=== PATIENT | female | born 1995 | race Caucasian/White ===

== ENCOUNTER 2016-08-13 14:36 | Emergency (ER) | payer BC ==
[~2016-08-13] VITALS: Ht 165.1 cm; Wt 80.4 kg
[2016-08-13 14:43] VITALS: Ht 165.1 cm; Wt 80.4 kg
[2016-08-13] MEDS ORDERED: SODIUM CHLORIDE 0.9% 1000ML 2,000 ML IV STA (15:01)
[2016-08-13] MEDS ORDERED: KETOROLAC TROMETHAMINE 30 MG/ML VIAL IV STA (15:01)
[2016-08-13] MEDS ORDERED: ONDANSETRON INJ 2 MG/ML 2 ML VIAL IV STA (15:01)
[2016-08-13] MEDS ORDERED: SODIUM CHLORIDE 0.9% 1000ML 1,000 ML IV STA (15:06)
[2016-08-13] MEDS ORDERED: ACETAMINOPHEN 500 MG TAB PO STA (15:06)
[2016-08-13] MEDS ORDERED: BCPILLS PO (15:09)
[2016-08-13 15:47] LABS: URINE APPEARANCE CLOUDY (CLEAR); URINE BILIRUBIN NEG (NEG); URINE COLOR DK YELLOW; URINE EPITHELIAL CELL AUTO >30 /lpf (0-5); URINE NITRITE NEG (NEG); URINE SPECIFIC GRAVITY 1.031 (1.000-1.030); UROBILINOGEN NEG (NEG); ZZUR CULT IF INDIC CLEAN CATCH YES
[2016-08-13 15:48] LABS: MANUAL MICROSCOPIC REQUIRED? NO; REVIEW REQ? NO
[2016-08-13 16:05] LABS: COMPLETE YES; HEMATOCRIT 42.7 % (37-47); IG% 0.3 %; LYMPH % 11.2 %; LYMPH ABS # 0.83 K/uL (1.2-3.4); MEAN CELL VOLUME 83.9 fL (80-100); MEAN CORPUSCULAR HEMOGLOBIN 29.5 pg (25-34); MEAN CORPUSCULAR HGB CONC 35.1 g/dl (32-36); MEAN PLATELET VOLUME 11.1 fL (7.4-10.4); MONO % 5.7 %; NEUT % 82.8 %; PLATELET COUNT 191 K/uL (130-400); RED BLOOD COUNT 5.09 M/uL (4.2-5.4); WHITE BLOOD COUNT 7.43 K/uL (4.8-10.8)
--- NOTE | 2016-08-13 16:17 | EMERGENCY ROOM VISIT NOTE ---
History Report prepared by Tosha: Nya Mcpherson Under the Supervision of: Carmita HogueO. First contact with patient: 14:52 Chief Complaint: VOMITING Stated Complaint: THROWING UP,DIARRHEA,DIZZY,FEVER History of Present Illness The patient is a 20 year old female who presents to the Emergency Room with complaints of persistent mid abdominal pain starting yesterday. The patient also complains of dizziness with changes in position. She notes fevers. She started having nausea and vomiting this morning. About an hour after she started vomiting, she started having diarrhea. She has had 4 episodes of diarrhea today. She currently rates a pain intensity of 7-8/10. Pt denies headache, change in vision, chest pain, shortness of breath, pain with urination , melena, and vaginal bleeding/discharge. She denies any medical problems. She denies any history of abdominal surgeries. She denies any recent antibiotics. She denies any recent travels or drinking from questionable sources of water. 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 She is on control medications. Source of History: patient Onset: yesterday Position: abdomen (mid) Symptom Intensity: 7-8/10 Timing: other (persistent) Associated Symptoms: + diarrhea, + nausea, + vomiting, No SOB, No chest pain , No headache Review of Systems See HPI for pertinent positives & negatives. A total of 10 systems reviewed and were otherwise negative. Past Medical & Surgical Medical Problems: (1) No Known Active Medical Problems Family History Patient reports no known family medical history. Social History Smoking Status: Never Smoker Marital Status: single Occupation Status: employed Current/Historical Medications Scheduled Control Pills ( Control Pills), 1 TAB PO DAILY Scheduled PRN Ondansetron Hcl (Zofran), 4 MG PO TID PRN for Nausea Allergies Coded Allergies: No Known Allergies (Unverified , 08/13/16) Physical Exam Vital Signs Date Time Temp Pulse Resp B/P Pulse Ox O2 Delivery O2 Flow Rate FiO2 08/13/16 18:54 88 14 135/80 98 08/13/16 18:29 96 17 135/73 100 Room Air 08/13/16 17:29 103 14 125/75 99 Room Air 08/13/16 16:44 37.3 110 14 125/78 98 Room Air 08/13/16 15:09 107 08/13/16 14:54 110 24 133/78 100 Room Air 129 126/84 133 128/79 08/13/16 14:43 37.8 115 18 134/84 100 Room Air Physical Exam GENERAL: Sitting up in bed, disheveled, no acute distress, non-toxic EYE EXAM: normal conjunctiva, PERRL and EOM's grossly intact OROPHARYNX: no exudate, no erythema, lips, buccal mucosa, and tongue normal and mucous membranes are moist NECK: supple, no nuchal rigidity, no adenopathy, non-tender LUNGS: Clear to auscultation. Normal chest wall mechanics HEART: no murmurs, S1 normal and S2 normal ABDOMEN: abdomen soft, minimal tenderness in the epigastric region, normo- active bowel sounds, no masses, no rebound or guarding. BACK: Back is symmetrical on inspection and there is no deformity, no midline tenderness, no CVA tenderness. SKIN: no rashes and no bruising UPPER EXTREMITIES: upper extremities are grossly normal. LOWER EXTREMITIES: No pitting edema. NEURO EXAM: Normal sensorium, cranial nerves II-XII intact, normal speech, no weakness of arms, no weakness of legs. No drift. Finger to nose intact. Gross sensation intact. Medical Decision & Procedures ER Provider Diagnostic Interpretation: US results as stated below per my review and the radiologist's interpretation: ULTRASOUND RIGHT UPPER QUADRANT ABDOMEN CLINICAL HISTORY: Right upper quadrant abdominal pain. COMPARISON STUDY: No priors. TECHNIQUE: Real-time, grayscale, and color flow sonography of the right upper quadrant of the abdomen was performed. Images are reviewed in the transverse and longitudinal planes. FINDINGS: Liver: The liver is normal in size and echotexture. There is no intrahepatic biliary ductal dilatation. The main portal vein is patent. Gallbladder: The gallbladder is normal in appearance. No gallstones are identified. There is no gallbladder wall thickening or pericholecystic fluid. A sonographic Patton's sign is reportedly absent. The common bile duct measures up to 0.4 cm in diameter. Pancreas: Visualized portions of the pancreatic head are normal in appearance. The majority of the pancreas was not well visualized. The splenic vein is patent. Right kidney: Survey images of the right kidney demonstrate normal size and echotexture. There is no hydronephrosis. Ascites: None. IMPRESSION: Unremarkable sonographic assessment of the right upper quadrant. No gallstones are identified. Electronically signed by: Julio Cesar Pinto M.D. 08/13/2016 4:43 PM Dictated Date/Time: 08/13/2016 4:42 PM Laboratory Results 08/13/16 15:54 Red Blood Count 5.09, Mean Corpuscular Volume 83.9, Mean Corpuscular Hemoglobin 29.5, Mean Corpuscular Hemoglobin Concent 35.1, Mean Platelet Volume 11.1, Neutrophils (%) (Auto) 82.8, Lymphocytes (%) (Auto) 11.2, Monocytes (%) (Auto) 5.7, Eosinophils (%) (Auto) 0.0, Basophils (%) (Auto) 0.0, Neutrophils # (Auto) 6.16, Lymphocytes # (Auto) 0.83, Monocytes # (Auto) 0.42, Eosinophils # (Auto) 0.00, Basophils # (Auto) 0.00 08/13/16 15:54 Test 08/13/16 15:25 08/13/16 15:54 Urine Color DK YELLOW Urine Appearance CLOUDY (CLEAR) Urine pH 5.0 (4.5-7.5) Urine Specific Thebes 1.031 (1.000-1.030) Urine Protein NEG (NEG) Urine Glucose (UA) NEG (NEG) Urine Ketones 2+ (NEG) Urine Occult Blood TRACE (NEG) Urine Nitrite NEG (NEG) Urine Bilirubin NEG (NEG) Urine Urobilinogen NEG (NEG) Urine Leukocyte Esterase SMALL (NEG) Urine WBC (Auto) 1-5 /hpf (0-5) Urine RBC (Auto) 5-10 /hpf (0-4) Urine Hyaline Casts (Auto) 5-10 /lpf (0-5) Urine Epithelial Cells (Auto) >30 /lpf (0-5) Urine Bacteria (Auto) 1+ (NEG) Urine Test NEG (NEG) White Blood Count 7.43 K/uL (4.8-10.8) Red Blood Count 5.09 M/uL (4.2-5.4) Hemoglobin 15.0 g/dL (12.0-16.0) Hematocrit 42.7 % (37-47) Mean Corpuscular Volume 83.9 fL (80-100) Mean Corpuscular Hemoglobin 29.5 pg (25-34) Mean Corpuscular Hemoglobin Concent 35.1 g/dl (32-36) Platelet Count 191 K/uL (130-400) Mean Platelet Volume 11.1 fL (7.4-10.4) Neutrophils (%) (Auto) 82.8 % Lymphocytes (%) (Auto) 11.2 % Monocytes (%) (Auto) 5.7 % Eosinophils (%) (Auto) 0.0 % Basophils (%) (Auto) 0.0 % Neutrophils # (Auto) 6.16 K/uL (1.4-6.5) Lymphocytes # (Auto) 0.83 K/uL (1.2-3.4) Monocytes # (Auto) 0.42 K/uL (0.11-0.59) Eosinophils # (Auto) 0.00 K/uL (0-0.5) Basophils # (Auto) 0.00 K/uL (0-0.2) RDW Standard Deviation 42.2 fL (36.4-46.3) RDW Coefficient of Variation 13.6 % (11.5-14.5) Immature Granulocyte % (Auto) 0.3 % Immature Granulocyte # (Auto) 0.02 K/uL (0.00-0.02) Anion Gap 8.0 mmol/L (3-11) Est Creatinine Clear Calc Drug Dose 134.0 ml/min Estimated GFR () 143.2 Estimated GFR (Non- 123.6 BUN/Creatinine Ratio 11.8 (10-20) Calcium Level 8.4 mg/dl (8.5-10.1) Total Bilirubin 0.4 mg/dl (0.2-1) Direct Bilirubin 0.1 mg/dl (0-0.2) Aspartate Amino Transf (AST/SGOT) 12 U/L (15-37) Alanine Aminotransferase (ALT/SGPT) 21 U/L (12-78) Alkaline Phosphatase 59 U/L (45-117) Total Protein 7.2 gm/dl (6.4-8.2) Albumin 3.4 gm/dl (3.4-5.0) Lipase 117 U/L (73-393) Laboratory results per my review. Medications Administered Medications (Trade) Dose Ordered Sig/Rose Route Start Time Stop Time Status Last Admin Dose Admin Sodium Chloride (Nss 1000ml) 2,000 ml @ 999 mls/hr Q2H1M STAT IV 08/13/16 15:01 08/13/16 17:01 DC 08/13/16 15:42 999 MLS/HR Ondansetron HCl (Zofran Inj) 4 mg NOW STAT IV 08/13/16 15:01 08/13/16 15:05 DC 08/13/16 15:45 4 MG Ketorolac Tromethamine 30 mg 30 mg NOW STAT IV 08/13/16 15:01 08/13/16 15:05 DC 08/13/16 15:44 30 MG Sodium Chloride (Nss 1000ml) 1,000 ml @ 999 mls/hr Q1H1M STAT IV 08/13/16 15:06 08/13/16 16:06 DC 08/13/16 15:06 999 MLS/HR Acetaminophen (Tylenol Tab) 1,000 mg NOW STAT PO 08/13/16 15:06 08/13/16 15:07 DC 08/13/16 15:46 1,000 MG ED Course ED COURSE: Vital signs were reviewed and showed febrile and tachycardic. The patients medical record was reviewed The above diagnostic studies were performed and reviewed. ED treatments and interventions as stated above. 1452: The patient was evaluated in room A10. A complete history and physical examination was performed. 1501: Toradol Inj 30 mg IV, Zofran Inj 4 mg IV, Sodium Chloride 2000 ml @ 999 mls/hr IV 1506: Tylenol Tab 1000 mg PO, Sodium Chloride 1000 ml @ 999 mls/hr IV 1545: I reevaluated the patient who is doing well. 1845: Upon reevaluation, the patient is resting comfortably.I discussed my findings with the patient and she understands and agrees with the treatment plan. Based on the patients age, coexisting illnesses, exam and lab findings the decision to treat as an outpatient was made. The patient remained stable while under my care. The patient appeared well at the time of discharge. Medical Decision Differential diagnoses includes but is not limited to gastritis, peptic ulcer disease, GERD, gallbladder disease, pancreatitis, small bowel obstruction, acute coronary syndrome, pericarditis, ischemic bowel, irritable bowel disease, irritable bowel syndrome, appendicitis, diverticulitis, malignancy, hernia, urinary tract infection, torsion, /ectopic , perforation, trauma, infectious. Patient is a 20-year-old female who presents the ER for an upset stomach which started yesterday followed by nausea, vomiting and diarrhea today. She denies any recent travel, drinking from streams or abnormal eating habits. 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 She notes she has been unable to keep anything down. No other medical problems. Her abdominal exam is fairly benign with minimal tenderness in the epigastric region. IV was established and she was given 3 L normal saline along with Zofran, Toradol and Tylenol. She was tachycardic upon arrival and had a low- grade fever at 37.8. No urinary symptoms. CBC shows no significant leukocytosis or anemia. UA has ketones with a small amount of esterase. Greater than 30 epithelial cells. White cells were 1-5. was negative. BMP along with LFTs and bilirubin was unremarkable. Patient was feeling significantly better and her fever and heart rate trended down. She is discharged tolerating liquids the follow-up with her primary care doctor. Discussed with Pt concerning signs and symptoms to watch out for. Pt was instructed to follow up with their PCP and discussed with the patient their option to return to the ED at anytime for persistent or worsening symptoms. The appropriate anticipatory guidance and out-patient management, including indications for return to the emergency department, were explained at length to the patient and understood. Impression Primary Impression: Gastroenteritis Additional Impression: Fever Scribe Attestation The scribe's documentation has been prepared under my direction and personally reviewed by me in its entirety. I confirm that the note above accurately reflects all work, treatment, procedures, and medical decision making performed by me. Departure Information Dispostion Home / Self-Care Prescriptions Ondansetron Hcl (ZOFRAN) 4 Mg Tab 4 MG PO TID Y for Nausea, #20 TAB Prov: Hans Sebastian, 08/13/16 Referrals No Doctor, Assigned (PCP) Forms HOME CARE DOCUMENTATION FORM, IMPORTANT VISIT INFORMATION Patient Instructions ED Gastroenteritis Viral, My [facility] Additional Instructions Please follow up with your primary care doctor with in the next 24 hours. Any worsening of your symptoms, please return to the ED immediately. This includes fevers greater than 100.4, persistent nausea vomiting, unable to drink fluids, passing out, or any other concerning signs or symptoms from your standpoint. Please take Tylenol as needed for fevers. Please takes Zofran as needed for nausea/vomiting. Problem Qualifiers Additional Impression: Fever Fever type: unspecified Qualified Codes: R50.9 - Fever, unspecified
[2016-08-13 16:26] LABS: BUN/CREATININE RATIO 11.8 (10-20); CALCIUM 8.4 mg/dl (8.5-10.1); CREATININE 0.69 mg/dl (0.60-1.20); POTASSIUM 3.8 mmol/L (3.5-5.1)
[2016-08-13 16:44] VITALS: TEMP 37.3
--- NOTE | 2016-08-13 16:45 | DIAGNOSTIC IMAGING REPORT ---
ULTRASOUND RIGHT UPPER QUADRANT ABDOMEN CLINICAL HISTORY: Right upper quadrant abdominal pain. COMPARISON STUDY: No priors. TECHNIQUE: Real-time, grayscale, and color flow sonography of the right upper quadrant of the abdomen was performed. Images are reviewed in the transverse and longitudinal planes. FINDINGS: Liver: The liver is normal in size and echotexture. There is no intrahepatic biliary ductal dilatation. The main portal vein is patent. Gallbladder: The gallbladder is normal in appearance. No gallstones are identified. There is no gallbladder wall thickening or pericholecystic fluid. A sonographic Patton's sign is reportedly absent. The common bile duct measures up to 0.4 cm in diameter. Pancreas: Visualized portions of the pancreatic head are normal in appearance. The majority of the pancreas was not well visualized. The splenic vein is patent. Right kidney: Survey images of the right kidney demonstrate normal size and echotexture. There is no hydronephrosis. Ascites: None. IMPRESSION: Unremarkable sonographic assessment of the right upper quadrant. No gallstones are identified. Electronically signed by: Julio Cesar Pinto M.D. 08/13/2016 4:43 PM Dictated Date/Time: 08/13/2016 4:42 PM
[2016-08-13] MEDS ORDERED: ONDA4TAB46 PO (18:45)
[2016-08-13 18:54] VITALS: BP 135/80; PULSE 88; O2SAT 98
== END 2016-08-13 18:50 | disposition home or self-care (01) ==
LOC: C.EDB 14:37 → C.EDA 18:50
DX: K52.9 Noninfective gastroenteritis and colitis, unspecified (principal); R50.9 Fever, unspecified; Z79.3 Long term (current) use of hormonal contraceptives

== ENCOUNTER 2018-06-19 12:54 | Inpatient (IN) ==
[2018-06-19] MEDS ORDERED: ONDANSETRON INJ 2 MG/ML 2 ML VIAL IV STA (13:46)
[2018-06-19] MEDS ORDERED: SODIUM CHLORIDE 0.9% 1000ML 2,000 ML IV SCH (14:00)
[2018-06-19 14:11] LABS: Basophils # (auto) 0.01 K/uL (0-0.2); Basophils % (auto) 0.1 %; Hematocrit (blood only) 38.1 % (37-47); Hemoglobin 12.7 g/dL (12.0-16.0); Immature Granulocytes # (auto) 0.07 K/uL (0.00-0.02); Immature Granulocytes % (auto) 0.4 %; Lymphocytes # (auto) 0.55 K/uL (1.2-3.4); Lymphocytes % (auto) 3.2 %; Mean Corpuscular Hgb Conc 33.3 g/dL (32-36); Mean Corpuscular Volume 83.4 fL (80-100); Mean Platelet Volume 11.5 fL (7.4-10.4); Monocytes # (auto) 0.56 K/uL (0.11-0.59); Monocytes % (auto) 3.3 %; Neutrophils # (auto) 16.01 K/uL (1.4-6.5); Platelet Count 200 K/uL (130-400); RDW Coefficient of Variation 14.9 % (11.5-14.5); RDW Standard Deviation 45.3 fL (36.4-46.3); Red Blood Count 4.57 M/uL (4.2-5.4)
[2018-06-19 14:32] LABS: Albumin Level 2.7 gm/dl (3.4-5.0); BUN Creatinine Ratio 13.7 (10-20); Creatinine Clr Calc Pharmacy 176.5 ml/min; Est GFR (African American) 149.5; Potassium 3.6 mmol/L (3.5-5.1)
[2018-06-19 14:35] LABS: Albumin Globulin Ratio 0.7 (0.9-2); Bilirubin,Total 0.4 mg/dl (0.2-1); Globulin 3.9 gm/dl (2.5-4.0); Total Protein 6.6 gm/dl (6.4-8.2)
[2018-06-19 15:24] LABS: Appearance Urine Clear (Clear); Bilirubin Urine Negative (Negative); Color Urine Yellow; Glucose Urine UA Negative (Negative); Leukocyte Esterase Urine Negative (Negative); Nitrite Urine Negative (Negative); Protein Urine Negative (Negative); Specific Gravity Urine 1.029 (1.000-1.030); Urobilinogen Urine Negative (Negative)
[2018-06-19 15:29] LABS: Ketones Urine 4+ (Negative)
[2018-06-19] MEDS ORDERED: PROMETHAZINE 25 MG/51 ML BAG IV STA (16:11)
[2018-06-19] MEDS ORDERED: SODIUM CHLORIDE 0.9% 1000ML 1,000 ML IV STA (17:51)
[2018-06-19] MEDS ORDERED: ONDANSETRON INJ 2 MG/ML 2 ML VIAL IV PRN (19:42)
--- NOTE | 2018-06-19 20:39 | Emergency Department Note ---
Entered by Jett Hawkins acting as a scribe for Adrien Gordon MD ED Provider Note CHIEF COMPLAINT: Vomiting HISTORY OF PRESENT ILLNESS: The patient is a 22 year old female who presents to the ER with complains of vomiting that started this morning at 0300. The patient is currently as well. She notes feeling very nauseated and dizzy. Patient reports she is currently and that her OBGYN is at [facility]. She states having no prior problems with gut related illness or crohn's disease. She also states she is having very loose stool and has thrown up 6 to 7 times. Her last time she threw up she noticed that while throwing up it included bile. She states taking some nausea medication at 0100 but that did not relieve her symptoms. She states she has had no weird contractions of urinating problems. No vaginal bleeding or fluid leaking. She states having not urinated today as well. She denies being around any known sick people and that this is her first . She states that her baby is moving fine in the stomach. The parent denies LOC, visual complaints, neck pain/limited ROM, difficulty with swallowing, melena, hematochezia, lymphadenopathy, rash, joint tenderness/swelling, or other complaints. REVIEW OF SYSTEMS: See HPI for pertinent positives and negatives. A total of ten systems were reviewed and were otherwise negative. PMHx/PSHx: Vomiting SOCIAL HISTORY: Patient lives at home. PHYSICAL EXAM: GENERAL: Awake, alert, well-appearing, in no distress, no rash, no breakouts HENT: Normocephalic, atraumatic. Oropharynx unremarkable. EYES: Normal conjunctiva. Sclera non-icteric. NECK: Inspection normal. Non-tender. Supple. No nuchal rigidity. FROM. No masses. RESPIRATORY: Clear to auscultation. No wheezes. No rales. Normal respiratory effort. CARDIAC: Tachycardic rate. Normal rhythm. No murmurs. No rubs. Extremities warm and well perfused. Pulses equal. No JVD. GI: Soft, non-distended. No tenderness to palpation. No rebound or guarding. No masses. Gravid Abdomen RECTAL: Deferred, MUSCULOSKELETAL: Atraumatic. Chest examination reveals no tenderness. The back is symmetrical on inspection without obvious abnormality. There is no CVA tenderness to palpation. No joint edema. LOWER EXTREMITIES: Calves are equal size bilaterally and non-tender. No edema.chronic venous NEURO: Normal sensorium. No sensory or motor deficits noted. SKIN: No rash or jaundice noted. EMERGENCY DEPARTMENT COURSE: 1328: Past medical records reviewed. The patient was evaluated in room B7, and a complete history and physical examination were performed. 1555- I spoke to Tatum Leon. The doctor suggested IV Phenergan for vomiting. 175- I spoke to Tatum Leon and he will take the patient under his care. I discussed the treatment plan with the patient and they verbalized agreement. MEDICAL DECISION MAKING: Prior records/ancillary studies reviewed. Triage Nursing notes reviewed and agree them. Additional history obtained from the family. The patient's history was concerning for nausea, vomiting, diarrhea, and . Differential diagnosis: Etiologies such as gastroenteritis, food borne illness, infections, appendicitis , diverticulitis, inflammatory bowel disease, GI bleed, biliary pathology, application of , hyperemesis, as well as others were entertained. Physical examination findings: As above. The patient had no abdominal tenderness on examination. ER treatment provided: IV hydration 2 L NSS. IV Zofran On reassessment the patient was still nauseated and had vomiting. IV Phenergan after discussion with RADIOLOGY ORDERLY On reassessment the patient felt better. The patient was given a p.o. challenge. Unfortunately she became ill again with p.o. intake. Normal saline at 125 mL an hour Diagnostics interpretation by me: The labs revealed a moderate leukocytosis on CBC. Chemistry panel was unremarkable. Urinalysis unremarkable Imaging studies: Deferred Consultation: A consultation was placed with the [facility] RADIOLOGY ORDERLY, Dr. Benoit Meek. The case was discussed and diagnostics were reviewed. He excepted the patient to the obstetrics floor for further management. IMPRESSION: Vomiting, Nausea and Diarrhea PLAN: Admit The scribe's documentation has been prepared under my direction and personally reviewed by me in its entirety. I confirm that the note above accurately reflects all work, treatment, procedures, and medical decision making performed by me. Impression & Plan Nausea & vomiting Past Med/Surg History Medical History Vomiting (Acute) Social History Feels Safe at Home: Yes Smoking Status: Never smoker Results & Data Vital Signs Vital Signs - 24 hr 06/19/18 13:00 06/19/18 13:44 06/19/18 14:03 Temperature 36.8 C Temperature Source Oral Sepsis Recent Fever Within 48 Hours No Sepsis Action Taken by Nursing No Action Required Pulse Rate 110 H Pulse Rate [Right Finger] 115 H Pulse Rate from SpO2 Sensor 110 H Respiratory Rate 20 18 21 Respiratory Effort / Characteristics Non-Labored Respiratory Depth Normal Blood Pressure 122/64 149/86 H Blood Pressure [Left Arm] 124/74 Blood Pressure Mean 83 107 Blood Pressure Mean [Left Arm] 90 Pulse Oximetry 100 100 100 Oxygen Delivery Method Room Air Room Air 06/19/18 14:07 06/19/18 14:30 06/19/18 14:40 Temperature Temperature Source Sepsis Recent Fever Within 48 Hours Sepsis Action Taken by Nursing Pulse Rate 118 H 112 H Pulse Rate [Right Finger] Pulse Rate from SpO2 Sensor 117 H 114 H Respiratory Rate 25 H 20 Respiratory Effort / Characteristics Respiratory Depth Blood Pressure 128/72 Blood Pressure [Left Arm] Blood Pressure Mean 90 Blood Pressure Mean [Left Arm] Pulse Oximetry 100 100 100 Oxygen Delivery Method Room Air 06/19/18 14:50 06/19/18 15:00 06/19/18 15:11 Temperature Temperature Source Sepsis Recent Fever Within 48 Hours Sepsis Action Taken by Nursing Pulse Rate 114 H 112 H 117 H Pulse Rate [Right Finger] Pulse Rate from SpO2 Sensor 115 H 112 H Respiratory Rate 26 H 24 26 H Respiratory Effort / Characteristics Respiratory Depth Blood Pressure 129/82 Blood Pressure [Left Arm] Blood Pressure Mean 97 Blood Pressure Mean [Left Arm] Pulse Oximetry 100 100 Oxygen Delivery Method 06/19/18 15:20 06/19/18 15:30 06/19/18 15:40 Temperature Temperature Source Sepsis Recent Fever Within 48 Hours Sepsis Action Taken by Nursing Pulse Rate 121 H 120 H 123 H Pulse Rate [Right Finger] Pulse Rate from SpO2 Sensor 120 H 119 H 125 H Respiratory Rate 17 23 17 Respiratory Effort / Characteristics Respiratory Depth Blood Pressure 117/83 Blood Pressure [Left Arm] Blood Pressure Mean 94 Blood Pressure Mean [Left Arm] Pulse Oximetry 99 99 100 Oxygen Delivery Method 06/19/18 15:50 06/19/18 16:00 06/19/18 16:10 Temperature Temperature Source Sepsis Recent Fever Within 48 Hours Sepsis Action Taken by Nursing Pulse Rate 118 H 122 H 122 H Pulse Rate [Right Finger] Pulse Rate from SpO2 Sensor 120 H 123 H 123 H Respiratory Rate 24 24 24 Respiratory Effort / Characteristics Respiratory Depth Blood Pressure 129/71 Blood Pressure [Left Arm] Blood Pressure Mean 90 Blood Pressure Mean [Left Arm] Pulse Oximetry 99 99 99 Oxygen Delivery Method 06/19/18 16:20 06/19/18 16:30 06/19/18 16:40 Temperature Temperature Source Sepsis Recent Fever Within 48 Hours Sepsis Action Taken by Nursing Pulse Rate 120 H 119 H 118 H Pulse Rate [Right Finger] Pulse Rate from SpO2 Sensor 121 H 119 H 119 H Respiratory Rate 17 26 H 27 H Respiratory Effort / Characteristics Respiratory Depth Blood Pressure 111/61 Blood Pressure [Left Arm] Blood Pressure Mean 77 Blood Pressure Mean [Left Arm] Pulse Oximetry 98 98 99 Oxygen Delivery Method 06/19/18 16:50 06/19/18 17:00 06/19/18 17:10 Temperature Temperature Source Sepsis Recent Fever Within 48 Hours Sepsis Action Taken by Nursing Pulse Rate 124 H 117 H 113 H Pulse Rate [Right Finger] Pulse Rate from SpO2 Sensor 124 H 117 H 113 H Respiratory Rate 24 26 H 28 H Respiratory Effort / Characteristics Respiratory Depth Blood Pressure 119/70 Blood Pressure [Left Arm] Blood Pressure Mean 86 Blood Pressure Mean [Left Arm] Pulse Oximetry 99 100 99 Oxygen Delivery Method 06/19/18 17:20 06/19/18 17:30 06/19/18 17:40 Temperature Temperature Source Sepsis Recent Fever Within 48 Hours Sepsis Action Taken by Nursing Pulse Rate 112 H 111 H 124 H Pulse Rate [Right Finger] Pulse Rate from SpO2 Sensor 113 H 111 H 121 H Respiratory Rate 27 H 28 H 28 H Respiratory Effort / Characteristics Respiratory Depth Blood Pressure 117/72 Blood Pressure [Left Arm] Blood Pressure Mean 87 Blood Pressure Mean [Left Arm] Pulse Oximetry 99 99 100 Oxygen Delivery Method 06/19/18 17:50 06/19/18 18:00 06/19/18 18:10 Temperature Temperature Source Sepsis Recent Fever Within 48 Hours Sepsis Action Taken by Nursing Pulse Rate 117 H 118 H 120 H Pulse Rate [Right Finger] Pulse Rate from SpO2 Sensor 117 H 117 H 119 H Respiratory Rate 25 H 28 H 30 H Respiratory Effort / Characteristics Respiratory Depth Blood Pressure 129/76 Blood Pressure [Left Arm] Blood Pressure Mean 93 Blood Pressure Mean [Left Arm] Pulse Oximetry 100 100 100 Oxygen Delivery Method 06/19/18 18:20 06/19/18 18:30 06/19/18 19:45 Temperature Temperature Source Sepsis Recent Fever Within 48 Hours Sepsis Action Taken by Nursing Pulse Rate 118 H 118 H 119 H Pulse Rate [Right Finger] Pulse Rate from SpO2 Sensor 117 H 120 H 118 H Respiratory Rate 19 26 H 24 Respiratory Effort / Characteristics Respiratory Depth Blood Pressure 122/71 103/50 L Blood Pressure [Left Arm] Blood Pressure Mean 88 67 Blood Pressure Mean [Left Arm] Pulse Oximetry 100 99 100 Oxygen Delivery Method 06/19/18 19:47 06/19/18 19:50 06/19/18 20:00 Temperature Temperature Source Sepsis Recent Fever Within 48 Hours Sepsis Action Taken by Nursing Pulse Rate 122 H 119 H 114 H Pulse Rate [Right Finger] Pulse Rate from SpO2 Sensor 122 H 118 H 116 H Respiratory Rate 21 21 17 Respiratory Effort / Characteristics Respiratory Depth Blood Pressure 121/68 Blood Pressure [Left Arm] Blood Pressure Mean 85 Blood Pressure Mean [Left Arm] Pulse Oximetry 99 98 99 Oxygen Delivery Method 06/19/18 20:10 Temperature Temperature Source Sepsis Recent Fever Within 48 Hours Sepsis Action Taken by Nursing Pulse Rate 121 H Pulse Rate [Right Finger] Pulse Rate from SpO2 Sensor 122 H Respiratory Rate 22 Respiratory Effort / Characteristics Respiratory Depth Blood Pressure Blood Pressure [Left Arm] Blood Pressure Mean Blood Pressure Mean [Left Arm] Pulse Oximetry 100 Oxygen Delivery Method Home Medications Current Medication List: was personally reviewed by me Laboratory Data Attestation: I reviewed the patient's lab results. Result diagrams: 06/19/18 14:05 06/19/18 14:05 Lab Results 06/19/18 06/19/18 06/19/18 Range/Units 14:05 14:05 15:12 WBC 17.20 H (4.8-10.8) K/uL RBC 4.57 (4.2-5.4) M/uL Hgb 12.7 (12.0-16.0) g/dL Hct 38.1 (37-47) % MCV 83.4 (80-100) fL MCH 27.8 (25-34) pg MCHC 33.3 (32-36) g/dL RDW Std Deviation 45.3 (36.4-46.3) fL RDW Coeff of Loli 14.9 H (11.5-14.5) % Plt Count 200 (130-400) K/uL MPV 11.5 H (7.4-10.4) fL Immature Gran % (Auto) 0.4 % Neut % (Auto) 93.0 % Lymph % (Auto) 3.2 % [place] % (Auto) 3.3 % Eos % (Auto) 0.0 % Baso % (Auto) 0.1 % Immature Gran # (Auto) 0.07 H (0.00-0.02) K/uL Neut # (Auto) 16.01 H (1.4-6.5) K/uL Lymph # (Auto) 0.55 L (1.2-3.4) K/uL [place] # (Auto) 0.56 (0.11-0.59) K/uL Eos # (Auto) 0.00 (0-0.5) K/uL Baso # (Auto) 0.01 (0-0.2) K/uL Sodium 139 (136-145) mmol/L Potassium 3.6 (3.5-5.1) mmol/L Chloride 110 H (98-107) mmol/L Carbon Dioxide 21 (21-32) mmol/L Anion Gap 8.0 (3-11) BUN 8 (7-18) mg/dl Creatinine 0.58 L (0.6-1.2) mg/dl Est Cr Clr Drug Dosing 176.5 ml/min Est GFR ( Amer) 149.5 Est GFR (Non-Af Amer) 129.0 BUN/Creatinine Ratio 13.7 (10-20) Glucose 76 (70-99) mg/dl Calcium 8.0 L (8.5-10.1) mg/dl Total Bilirubin 0.4 (0.2-1) mg/dl AST 8 L (15-37) U/L ALT 11 L (12-78) U/L Alkaline Phosphatase 79 (45-117) U/L Total Protein 6.6 (6.4-8.2) gm/dl Albumin 2.7 L (3.4-5.0) gm/dl Globulin 3.9 (2.5-4.0) gm/dl Albumin/Globulin Ratio 0.7 L (0.9-2) Lipase 60 L (73-393) U/L Urine Color Yellow Urine Appearance Clear (Clear) Urine pH 5.0 (4.5-7.5) Ur Specific [place] 1.029 (1.000-1.030) Urine Protein Negative (Negative) Urine Glucose (UA) Negative (Negative) Urine Ketones 4+ H (Negative) Urine Blood Negative (Negative) Urine Nitrite Negative (Negative) Urine Bilirubin Negative (Negative) Urine Urobilinogen Negative (Negative) Ur Leukocyte Esterase Negative (Negative) Administered Medications Discontinued Medications Sodium Chloride (Nss 1000ml) 2,000 mls @ 999 mls/hr IV .Q2H1M MICHELL Stop: 06/19/18 16:00 Last Infusion: 06/19/18 15:41 Dose: 0 mls/hr Admin: 06/19/18 13:55 Dose: 999 mls/hr Promethazine HCl (Phenergan) 25 mg in 51 mls @ 204 mls/hr IV NOW STA Stop: 06/19/18 16:25 Last Infusion: 06/19/18 16:47 Dose: 0 mls/hr Admin: 06/19/18 16:20 Dose: 204 mls/hr Sodium Chloride (Nss 1000ml) 1,000 mls @ 125 mls/hr IV .Q8H STA Stop: 06/20/18 01:50 Last Admin: 06/19/18 18:19 Dose: 125 mls/hr Ondansetron HCl (Zofran) 4 mg IV NOW STA Stop: 06/19/18 13:47 Last Admin: 06/19/18 13:55 Dose: 4 mg Blood Pressure Blood Pressure Findings: Normal blood pressure Discharge Plan Visit Data Chief Complaint: Vomiting Stated Complaint: VOMITING,DIARRHEA,WEAK 28 WEEKS PREG ED Provider: Adrien Gordon Discharge Problem: Nausea & vomiting Discharge Instructions Activity Restrictions/Additional Instructions: Proceed directly to the labor and delivery suite for further evaluation by [facility] RADIOLOGY ORDERLY Return to emergency department for worsening symptoms, abdominal pain, fever, problems with , or as needed. Follow-up with your primary physician after discharge. Interventions: ED Discharge Assessment Last Done: 06/19/18 20:14 Forms Stand Alone Forms: [facility] Prescriptions Prescriptions: No Action ondansetron 4 mg tablet,disintegrating 4 mg PO DAILY RF: 0 PNV cmb#95-ferrous fumarate-FA [] 28 mg iron- 800 mcg Tablet 1 tab PO DAILY RF: 0 Referrals Referrals: PCP,NO [Physician] - The scribe's documentation has been prepared under my direction and personally reviewed by me in its entirety. I confirm that the note above accurately reflects all work, treatment, procedures, and medical decision making performed by me.
[2018-06-19] MEDS: LACTATED RINGER'S 1,000 ML IV SCH (20:50)
[2018-06-20] MEDS ORDERED: BETAMETH SOD PHOS/ACETATE IA 6 MG/ML IM STA (00:08)
[2018-06-20] MEDS ORDERED: NIFEdipine 10 MG CAP PO STA (00:09)
[2018-06-20] MEDS: LACTATED RINGER'S 1,000 ML IV SCH (04:53)
[2018-06-20 08:09] LABS: Basophils # (auto) 0.01 K/uL (0-0.2); Basophils % (auto) 0.1 %; Eosinophils # (auto) 0.01 K/uL (0-0.5); Eosinophils % (auto) 0.1 %; Immature Granulocytes # (auto) 0.06 K/uL (0.00-0.02); Immature Granulocytes % (auto) 0.5 %; Lymphocytes # (auto) 1.34 K/uL (1.2-3.4); Lymphocytes % (auto) 11.9 %; Mean Corpuscular Hgb Conc 33.3 g/dL (32-36); Mean Corpuscular Volume 83.3 fL (80-100); Mean Platelet Volume 11.4 fL (7.4-10.4); Monocytes % (auto) 6.2 %; Neutrophils # (auto) 9.14 K/uL (1.4-6.5); Neutrophils % (auto) 81.2 %; Platelet Count 191 K/uL (130-400); RDW Coefficient of Variation 14.9 % (11.5-14.5); RDW Standard Deviation 45.8 fL (36.4-46.3); Red Blood Count 4.32 M/uL (4.2-5.4); White Blood Count 11.26 K/uL (4.8-10.8)
[2018-06-20 08:13] LABS: Appearance Urine Clear (Clear); Bilirubin Urine Negative (Negative); Color Urine Dark Yellow; Glucose Urine UA Negative (Negative); Ketones Urine Trace (Negative); Leukocyte Esterase Urine Negative (Negative); Nitrite Urine Negative (Negative); Protein Urine Negative (Negative); Specific Gravity Urine 1.022 (1.000-1.030); Urobilinogen Urine Positive (Negative); pH Urine 5.5 (4.5-7.5)
--- NOTE | 2018-06-20 09:19 | Obstetrical Progress Note ---
Date of Service June 20, 2018 Subjective Patient is seen and examined I got sign out from Dr. Meek who admitted her for N&V&D from ED. She started to have N&V&D yesterday and came to ER Given IVF/ Zofran she was still nauseous and was sent up here to OB floor She feels better now, slept all night, had no N&V or Diarrhea since yesterday morning Denies ctxs/ abd pain/ LOF/VB Good FM's Her urine showed 4+ ketone yesterday and now trace She ate her breakfast this am with no nausea PE: alert orientedx3, NAD, Smiling And: soft, NT, gravid Ext NT no edema FHR 150's reactive for [place] no ctxs Vital Signs Temp Pulse Pulse Resp BP Pulse Ox 06/20/18 07:50 36.8 C 118 H 22 115/75 97 06/20/18 03:25 36.7 C 108 H 20 124/75 97 06/20/18 00:15 108 H 20 121/74 96 06/20/18 06/20/18 06/19/18 Range/Units 07:54 07:50 15:12 WBC 11.26 H (4.8-10.8) K/uL RBC 4.32 (4.2-5.4) M/uL Hgb 12.0 (12.0-16.0) g/dL Hct 36.0 L (37-47) % MCV 83.3 (80-100) fL MCH 27.8 (25-34) pg MCHC 33.3 (32-36) g/dL RDW Std Deviation 45.8 (36.4-46.3) fL RDW Coeff of Loli 14.9 H (11.5-14.5) % Plt Count 191 (130-400) K/uL MPV 11.4 H (7.4-10.4) fL Immature Gran % (Auto) 0.5 % Neut % (Auto) 81.2 % Lymph % (Auto) 11.9 % [place] % (Auto) 6.2 % Eos % (Auto) 0.1 % Baso % (Auto) 0.1 % Immature Gran # (Auto) 0.06 H (0.00-0.02) K/uL Neut # (Auto) 9.14 H (1.4-6.5) K/uL Lymph # (Auto) 1.34 (1.2-3.4) K/uL [place] # (Auto) 0.70 H (0.11-0.59) K/uL Eos # (Auto) 0.01 (0-0.5) K/uL Baso # (Auto) 0.01 (0-0.2) K/uL Sodium (136-145) mmol/L Potassium (3.5-5.1) mmol/L Chloride (98-107) mmol/L Carbon Dioxide (21-32) mmol/L Anion Gap (3-11) BUN (7-18) mg/dl Creatinine (0.6-1.2) mg/dl Est Cr Clr Drug Dosing ml/min Est GFR ( Amer) Est GFR (Non-Af Amer) BUN/Creatinine Ratio (10-20) Glucose (70-99) mg/dl Calcium (8.5-10.1) mg/dl Total Bilirubin (0.2-1) mg/dl AST (15-37) U/L ALT (12-78) U/L Alkaline Phosphatase (45-117) U/L Total Protein (6.4-8.2) gm/dl Albumin (3.4-5.0) gm/dl Globulin (2.5-4.0) gm/dl Albumin/Globulin Ratio (0.9-2) Lipase (73-393) U/L Urine Color Dark Yellow Yellow Urine Appearance Clear Clear (Clear) Urine pH 5.5 5.0 (4.5-7.5) Ur Specific [place] 1.022 1.029 (1.000-1.030) Urine Protein Negative Negative (Negative) Urine Glucose (UA) Negative Negative (Negative) Urine Ketones Trace H 4+ H (Negative) Urine Blood Negative Negative (Negative) Urine Nitrite Negative Negative (Negative) Urine Bilirubin Negative Negative (Negative) Urine Urobilinogen Positive H Negative (Negative) Ur Leukocyte Esterase Negative Negative (Negative) 06/19/18 06/19/18 Range/Units 14:05 14:05 WBC 17.20 H (4.8-10.8) K/uL RBC 4.57 (4.2-5.4) M/uL Hgb 12.7 (12.0-16.0) g/dL Hct 38.1 (37-47) % MCV 83.4 (80-100) fL MCH 27.8 (25-34) pg MCHC 33.3 (32-36) g/dL RDW Std Deviation 45.3 (36.4-46.3) fL RDW Coeff of Loli 14.9 H (11.5-14.5) % Plt Count 200 (130-400) K/uL MPV 11.5 H (7.4-10.4) fL Immature Gran % (Auto) 0.4 % Neut % (Auto) 93.0 % Lymph % (Auto) 3.2 % [place] % (Auto) 3.3 % Eos % (Auto) 0.0 % Baso % (Auto) 0.1 % Immature Gran # (Auto) 0.07 H (0.00-0.02) K/uL Neut # (Auto) 16.01 H (1.4-6.5) K/uL Lymph # (Auto) 0.55 L (1.2-3.4) K/uL [place] # (Auto) 0.56 (0.11-0.59) K/uL Eos # (Auto) 0.00 (0-0.5) K/uL Baso # (Auto) 0.01 (0-0.2) K/uL Sodium 139 (136-145) mmol/L Potassium 3.6 (3.5-5.1) mmol/L Chloride 110 H (98-107) mmol/L Carbon Dioxide 21 (21-32) mmol/L Anion Gap 8.0 (3-11) BUN 8 (7-18) mg/dl Creatinine 0.58 L (0.6-1.2) mg/dl Est Cr Clr Drug Dosing 176.5 ml/min Est GFR ( Amer) 149.5 Est GFR (Non-Af Amer) 129.0 BUN/Creatinine Ratio 13.7 (10-20) Glucose 76 (70-99) mg/dl Calcium 8.0 L (8.5-10.1) mg/dl Total Bilirubin 0.4 (0.2-1) mg/dl AST 8 L (15-37) U/L ALT 11 L (12-78) U/L Alkaline Phosphatase 79 (45-117) U/L Total Protein 6.6 (6.4-8.2) gm/dl Albumin 2.7 L (3.4-5.0) gm/dl Globulin 3.9 (2.5-4.0) gm/dl Albumin/Globulin Ratio 0.7 L (0.9-2) Lipase 60 L (73-393) U/L Urine Color Urine Appearance (Clear) Urine pH (4.5-7.5) Ur Specific [place] (1.000-1.030) Urine Protein (Negative) Urine Glucose (UA) (Negative) Urine Ketones (Negative) Urine Blood (Negative) Urine Nitrite (Negative) Urine Bilirubin (Negative) Urine Urobilinogen (Negative) Ur Leukocyte Esterase (Negative) AP: 22 yo at 28 wks with N&V&D yesterday, resolved after IVF and antinausea meds Desires to be discharged f/u in office on 06/23 Physical Exam 2 Vital Signs (Past 24 Hours): Last Vital Signs Temp 36.8 C 06/20/18 07:50 Pulse 118 H 06/20/18 07:50 Resp 22 06/20/18 07:50 BP 115/75 06/20/18 07:50 Pulse Ox 97 06/20/18 07:50
--- NOTE | 2018-07-11 12:06 | Discharge Summary ---
DETAILS OF ADMISSION: The patient was a 22-year-old G1, P0 at 28 weeks, who presented to ER with nausea, vomiting and diarrhea on 06/19/2018. She was given IV fluids and IV Zofran for nausea. Her nausea got better, but she was not able to tolerate oral food. She was sent up to labor and delivery for overnight IV hydration and on antiemetic medication and observation. Overnight her nausea got better and she was able to tolerate clear diet. She slept all night and in the morning she was feeling better. No nausea, vomiting or diarrhea. She tolerated regular diet. She denied contractions, abdominal pain, nausea, leakage of fluid, or vaginal bleeding. She reported good movements. Upon admission, her urine showed +4 ketones and in the morning it was only trace. Her vital signs were stable, afebrile. Physical exam was unremarkable. Abdomen was soft, nontender. heart rate was reassuring at the baseline of 150s, reactive for gestational age. Tocometer showed no contractions. Her blood work including H&H, chemistry, sodium, potassium, chloride were normal and she desired to be discharged home on 06/20/2018. She is to be seen in 3 days in the office, 06/23/2018.
== END 2018-06-20 11:00 | disposition home or self-care (01) | DRG 833 ==
LOC: ED 12:54 → 4N 19:57

== ENCOUNTER 2018-09-03 23:49 | Inpatient (IN) ==
[2018-09-04] MEDS ORDERED: OXYTOCIN 30 UNITS/500 ML BAG IV PRN ×3 (00:25→16:55)
[2018-09-04] MEDS ORDERED: LACTATED RINGER'S 1,000 ML IV PRN ×3 (00:25→07:25)
[2018-09-04] MEDS ORDERED: ePHEDrine sulfate 50 MG/ML AMP ONE (00:33)
[2018-09-04] MEDS ORDERED: fentaNYL citrate 100 MCG/2 ML VIAL ONE (00:33)
[2018-09-04] MEDS ORDERED: BUPIVACAINE 0.25% 30 ML VIAL ONE (00:33)
[2018-09-04] MEDS ORDERED: fentaNYL 2MCG/ML ROPIV 1.25MG/ML 100 ML BAG EPI ONE (00:34)
[2018-09-04 01:00] LABS: Hematocrit (blood only) 37.8 % (37-47); Hemoglobin 13.4 g/dL (12.0-16.0); Mean Corpuscular Volume 78.9 fL (80-100); Mean Platelet Volume 11.4 fL (7.4-10.4); Nucleated RBC # (auto) 0.02 K/uL (0-0); Nucleated RBC % (auto) 0.1 %; Platelet Count 198 K/uL (130-400); RDW Coefficient of Variation 16.2 % (11.5-14.5); RDW Standard Deviation 46.6 fL (36.4-46.3); Red Blood Count 4.79 M/uL (4.2-5.4); White Blood Count 14.59 K/uL (4.8-10.8)
[2018-09-04 01:12] LABS: Mean Corpuscular Hgb Conc 35.4 g/dL (32-36)
--- NOTE | 2018-09-04 01:35 | Anesthesiology Consultation ---
Date of Service September 04, 2018 Assessment & Plan Chart Review Chart Review: Patient NOT seen in Pre Admission Testing and Acceptable Risk for Labor Epidural Consults Requested none ASA ASA3 Proposed Anesthesia Anesthesia Type: Labor Epidural Risk / Benefits Reviewed With: PT / POA / Parent / Guardian, Accepts Plan and Informed Consent Obtained History Height/Weight Height: 5 ft 5 in Weight: 108.862 kg Allergies Allergy/AdvReac Type Severity Reaction Status Date / Time No Known Allergies Allergy Verified 09/03/18 01:17 Medications Home Medications Medication Instructions Recorded Confirmed Last Taken PNV cmb#95-ferrous fumarate-FA 1 tab PO DAILY 06/19/18 09/04/18 09/03/18 [] Active Medications Generic Name Dose Route Start Last Admin Trade Name Freq PRN Reason Stop Dose Admin Lactated Ringer's 1,000 mls @ 999 mls/hr 09/04/18 00:25 09/04/18 01:30 Lr IV 10/04/18 00:24 125 mls/hr .Q1H1M PRN Infusion Pre-Anesthesia NPO Date Last Intake of Fluids: 09/03/18 Time Last Intake of Fluids: 22:00 Date Last Intake of Solids: 09/03/18 Time Last Intake of Solids: 19:00 Past Medical History Medical History Vomiting (Acute) GERD (gastroesophageal reflux disease) Morbid obesity [place] teeth removed Exercise / Class Metabolic Activity III < 4 Walking/Shop/Light housework History of PONV No Hx of PONV and No Hx of Motion Sickness Social History Smoking Status: Never smoker Hx Alcohol Use: No Hx Substance Use: No substance use type: does not use Physical Exam Vital Signs Last Vital Signs Temp 36.7 C 09/03/18 23:59 Pulse 137 H 09/04/18 01:29 Resp 18 09/03/18 23:59 BP 137/85 09/04/18 01:19 Pulse Ox 98 09/04/18 01:29 Constitutional + morbidly obese ENMT Mouth: no dentition abnormality Thyromental Distance: > or= 3.5 Finger Breadths Mallampati Class: II Neck normal visual inspection and trachea midline; neck extension not limited Respiratory normal respiratory effort Auscultation: lungs clear to auscultation bilaterally Cardiovascular Rate/Rhythm: regular rate and regular rhythm Heart Sounds: no murmur Musculoskeletal Spine: lumbar spine normal to inspection; normal cervical ROM Neurologic moves all extremities Motor/Sensory: no sensory deficit Psychiatric Orientation: alert and oriented x 3 Testing Laboratory Results 09/04/18 00:37
[2018-09-04] MEDS ORDERED: ePHEDrine sulfate 50 MG/ML AMP IV PRN (02:02)
[2018-09-04] MEDS ORDERED: ONDANSETRON INJ 2 MG/ML 2 ML VIAL IV PRN (02:02)
[2018-09-04] MEDS ORDERED: fentaNYL 2MCG/ML ROPIV 1.25MG/ML 100 ML BAG EPI PRN (02:02)
[2018-09-04] MEDS ORDERED: NALOXONE HCL 0.4 MG/1 ML VIAL/CARP IV PRN (02:02)
[2018-09-04] MEDS ORDERED: PROMETHAZINE HCL 25 MG in SODIUM CHLORIDE 0.9% 50 ML IV PRN (02:02)
[2018-09-04] MEDS ORDERED: DiphenhydrAMINE HCL 50 MG/ML VIAL IV PRN (02:02)
[2018-09-04] MEDS ORDERED: NALBUPHINE HCL INJ 10 MG/ML AMP IV PRN (02:02)
[2018-09-04] MEDS ORDERED: NALOXONE HCL 1 MG in SODIUM CHLORIDE 0.9% 1000ML 1,000 ML IV PRN (02:02)
--- NOTE | 2018-09-04 02:03 | History and Physical Report ---
DATE OF ADMISSION: 09/04/2018 HISTORY OF PRESENT ILLNESS: The patient is a 23-year-old G1, P0, due date 09/13/2018, making it 38 weeks and 4 days who presented to labor and delivery with contractions every 2-4 minutes. On exam, she was found to be ____ cm dilated. The patient had no bloody show, no rupture of membranes. No fever or chills. COURSE: Has been unremarkable. LABS: O positive, antibody negative, rubella immune, GBS negative, HIV negative. PAST MEDICAL HISTORY: None. PAST SURGICAL HISTORY: Dental procedures. SOCIAL HISTORY: The patient denies tobacco, drug or alcohol use. FAMILY HISTORY: Noncontributory. 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 PHYSICAL EXAMINATION: GENERAL: Well-developed, well-nourished white female in no acute distress. HEART: S1, S2, regular rhythm and rate. LUNGS: Clear to auscultation bilaterally. ABDOMEN: Gravid. PELVIC: ____ cm by nurse. EXTREMITIES: No cyanosis, clubbing, edema. ASSESSMENT AND PLAN: A 23-year-old G1, P0 at 38 weeks and 4 days in labor. The patient was admitted and we anticipate vaginal delivery.
[2018-09-04] MEDS: LACTATED RINGER'S 1,000 ML IV SCH ×2 (03:11→10:48)
[2018-09-04] MEDS ORDERED: CALCIUM CARBONATE 500 MG CHEWABLE TAB PO PRN (04:57)
[2018-09-04] MEDS ORDERED: CALCIUM CARBONATE 500 MG CHEWABLE TAB ONE (05:00)
--- NOTE | 2018-09-04 07:29 | Obstetrical Progress Note ---
Date of Service September 04, 2018 Physical Exam Physical Exam: patient comfortable monitor reviewed Cat 1 contractions have spaced out with epidural Will start Oxytocin to augment contractions. EFW 8.5 lbs. Results & Data Vital Signs (Past 12 Hours) Vital Signs Temp Pulse Resp BP Pulse Ox 09/04/18 07:24 93 H 131/73 99 09/04/18 07:19 91 H 98 09/04/18 07:14 91 H 98 09/04/18 07:09 99 H 99 09/04/18 07:08 36.7 C 99 H 20 128/83 09/04/18 07:04 91 H 97 09/04/18 07:00 101 H 124/60 09/04/18 06:59 104 H 97 09/04/18 06:54 92 H 96 09/04/18 06:52 91 H 117/59 L 09/04/18 06:49 90 96 09/04/18 06:44 94 H 96 09/04/18 06:39 94 H 96 09/04/18 06:37 89 18 131/69 09/04/18 06:36 100 H 92 09/04/18 06:34 92 H 96 09/04/18 06:29 91 H 96 09/04/18 06:24 87 122/65 97 09/04/18 06:19 94 H 96 09/04/18 06:14 88 96 09/04/18 06:09 93 H 96 09/04/18 06:07 81 18 120/70 09/04/18 06:04 95 H 96 09/04/18 05:59 92 H 97 09/04/18 05:54 97 H 96 09/04/18 05:52 93 H 114/66 09/04/18 05:49 96 H 97 09/04/18 05:44 92 H 97 09/04/18 05:39 95 H 97 09/04/18 05:37 88 18 121/69 09/04/18 05:34 94 H 97 09/04/18 05:29 101 H 97 09/04/18 05:26 36.9 C 09/04/18 05:24 106 H 96 09/04/18 05:22 114 H 120/63 09/04/18 05:19 112 H 97 09/04/18 05:14 101 H 97 09/04/18 05:09 114 H 98 09/04/18 05:07 93 H 18 133/69 09/04/18 05:04 121 H 98 09/04/18 04:59 100 H 97 09/04/18 04:54 106 H 98 09/04/18 04:52 103 H 123/68 09/04/18 04:49 99 H 98 09/04/18 04:44 111 H 99 09/04/18 04:39 106 H 98 09/04/18 04:38 101 H 18 127/69 09/04/18 04:34 115 H 99 09/04/18 04:29 99 H 96 09/04/18 04:24 111 H 111/60 97 09/04/18 04:19 93 H 96 09/04/18 04:14 95 H 96 09/04/18 04:09 101 H 97 09/04/18 04:07 97 H 18 118/65 09/04/18 04:04 112 H 97 09/04/18 03:59 108 H 97 09/04/18 03:54 98 H 98 09/04/18 03:52 108 H 18 132/75 09/04/18 03:49 106 H 99 09/04/18 03:44 110 H 98 09/04/18 03:39 99 H 18 126/70 99 09/04/18 03:34 99 H 98 09/04/18 03:29 103 H 97 09/04/18 03:24 122 H 96 09/04/18 03:22 114 H 18 115/69 09/04/18 03:19 102 H 97 09/04/18 03:14 114 H 96 09/04/18 03:09 98 H 98 09/04/18 03:07 107 H 18 125/72 09/04/18 03:04 106 H 98 09/04/18 02:59 122 H 98 09/04/18 02:54 104 H 97 09/04/18 02:52 36.8 C 108 H 18 123/70 09/04/18 02:49 102 H 99 09/04/18 02:44 122 H 99 09/04/18 02:39 117 H 98 09/04/18 02:36 103 H 18 119/67 09/04/18 02:34 105 H 98 09/04/18 02:29 118 H 125/70 100 09/04/18 02:24 115 H 18 124/72 99 05/09/19 02:19 108 H 128/73 99 09/04/18 02:14 114 H 99 09/04/18 02:09 106 H 18 126/63 99 09/04/18 02:04 120 H 98 09/04/18 02:02 105 H 18 120/61 09/04/18 02:00 131 H 114/56 L 09/04/18 01:59 125 H 99 09/04/18 01:58 125 H 124/58 L 09/04/18 01:56 125 H 141/64 H 09/04/18 01:55 111 H 163/79 H 09/04/18 01:54 118 H 99 09/04/18 01:52 113 H 122/83 09/04/18 01:50 115 H 128/79 09/04/18 01:49 130 H 98 09/04/18 01:44 136 H 97 09/04/18 01:39 132 H 98 09/04/18 01:34 130 H 99 09/04/18 01:29 137 H 98 09/04/18 01:24 109 H 97 09/04/18 01:19 98 H 137/85 99 09/04/18 01:14 107 H 97 09/04/18 01:09 103 H 97 09/04/18 01:04 109 H 99 09/04/18 00:59 104 H 99 09/04/18 00:54 109 H 100 09/03/18 23:59 36.7 C 100 H 18 127/79 09/03/18 23:57 100 H 127/79
--- NOTE | 2018-09-04 07:55 | Obstetrical Progress Note ---
Date of Service September 04, 2018 Subjective patient complaining of pressure and possible leaking Physical Exam Constitutional: WD/WN, vitals as above comfortable Genitourinary: OB Exam Abdomen: + irregular contractions Manual OB Exam: + cervical dilation 5 cm, + cervical effacement 90%, + station -1 and + amniotic fluid clear OB Exam Monitor Tracing: + category I and + normal FHT variability AROM with amni-hook for clear fluid Will plan for augmentation of labor with Oxytocin to get contractions in regular pattern Results & Data Vital Signs (Past 12 Hours) Vital Signs Temp Pulse Resp BP Pulse Ox 09/04/18 07:49 110 H 100 09/04/18 07:44 93 H 98 09/04/18 07:39 97 H 99 09/04/18 07:38 96 H 134/77 09/04/18 07:34 100 H 99 09/04/18 07:29 104 H 99 09/04/18 07:24 93 H 131/73 99 09/04/18 07:19 91 H 98 09/04/18 07:14 91 H 98 09/04/18 07:09 99 H 99 09/04/18 07:08 36.7 C 99 H 20 128/83 09/04/18 07:04 91 H 97 09/04/18 07:00 101 H 124/60 09/04/18 06:59 104 H 97 09/04/18 06:54 92 H 96 09/04/18 06:52 91 H 117/59 L 09/04/18 06:49 90 96 09/04/18 06:44 94 H 96 09/04/18 06:39 94 H 96 09/04/18 06:37 89 18 131/69 09/04/18 06:36 100 H 92 09/04/18 06:34 92 H 96 09/04/18 06:29 91 H 96 09/04/18 06:24 87 122/65 97 09/04/18 06:19 94 H 96 09/04/18 06:14 88 96 09/04/18 06:09 93 H 96 09/04/18 06:07 81 18 120/70 09/04/18 06:04 95 H 96 09/04/18 05:59 92 H 97 09/04/18 05:54 97 H 96 09/04/18 05:52 93 H 114/66 09/04/18 05:49 96 H 97 09/04/18 05:44 92 H 97 09/04/18 05:39 95 H 97 09/04/18 05:37 88 18 121/69 09/04/18 05:34 94 H 97 09/04/18 05:29 101 H 97 09/04/18 05:26 36.9 C 09/04/18 05:24 106 H 96 09/04/18 05:22 114 H 120/63 09/04/18 05:19 112 H 97 09/04/18 05:14 101 H 97 09/04/18 05:09 114 H 98 09/04/18 05:07 93 H 18 133/69 09/04/18 05:04 121 H 98 09/04/18 04:59 100 H 97 09/04/18 04:54 106 H 98 09/04/18 04:52 103 H 123/68 09/04/18 04:49 99 H 98 09/04/18 04:44 111 H 99 09/04/18 04:39 106 H 98 09/04/18 04:38 101 H 18 127/69 09/04/18 04:34 115 H 99 09/04/18 04:29 99 H 96 09/04/18 04:24 111 H 111/60 97 09/04/18 04:19 93 H 96 09/04/18 04:14 95 H 96 09/04/18 04:09 101 H 97 09/04/18 04:07 97 H 18 118/65 09/04/18 04:04 112 H 97 09/04/18 03:59 108 H 97 09/04/18 03:54 98 H 98 09/04/18 03:52 108 H 18 132/75 09/04/18 03:49 106 H 99 09/04/18 03:44 110 H 98 09/04/18 03:39 99 H 18 126/70 99 09/04/18 03:34 99 H 98 09/04/18 03:29 103 H 97 09/04/18 03:24 122 H 96 09/04/18 03:22 114 H 18 115/69 09/04/18 03:19 102 H 97 09/04/18 03:14 114 H 96 09/04/18 03:09 98 H 98 09/04/18 03:07 107 H 18 125/72 09/04/18 03:04 106 H 98 09/04/18 02:59 122 H 98 09/04/18 02:54 104 H 97 09/04/18 02:52 36.8 C 108 H 18 123/70 09/04/18 02:49 102 H 99 09/04/18 02:44 122 H 99 09/04/18 02:39 117 H 98 09/04/18 02:36 103 H 18 119/67 09/04/18 02:34 105 H 98 09/04/18 02:29 118 H 125/70 100 09/04/18 02:24 115 H 18 124/72 99 09/04/18 02:19 108 H 128/73 99 09/04/18 02:14 114 H 99 09/04/18 02:09 106 H 18 126/63 99 09/04/18 02:04 120 H 98 09/04/18 02:02 105 H 18 120/61 09/04/18 02:00 131 H 114/56 L 09/04/18 01:59 125 H 99 09/04/18 01:58 125 H 124/58 L 09/04/18 01:56 125 H 141/64 H 09/04/18 01:55 111 H 163/79 H 09/04/18 01:54 118 H 99 09/04/18 01:52 113 H 122/83 09/04/18 01:50 115 H 128/79 09/04/18 01:49 130 H 98 09/04/18 01:44 136 H 97 09/04/18 01:39 132 H 98 09/04/18 01:34 130 H 99 09/04/18 01:29 137 H 98 09/04/18 01:24 109 H 97 09/04/18 01:19 98 H 137/85 99 09/04/18 01:14 107 H 97 09/04/18 01:09 103 H 97 09/04/18 01:04 109 H 99 09/04/18 00:59 104 H 99 09/04/18 00:54 109 H 100 09/03/18 23:59 36.7 C 100 H 18 127/79 09/03/18 23:57 100 H 127/79
[2018-09-04] MEDS ORDERED: SUPERCREAM 0.870% 15 GM JAR EXT PRN (16:55)
[2018-09-04] MEDS ORDERED: BENZOCAINE 20% AER SPR 82.5 GM CAN EXT PRN (16:55)
[2018-09-04] MEDS ORDERED: BISACODYL 10 MG SUPP PR PRN (16:55)
[2018-09-04] MEDS ORDERED: HYDROCORTISONE ACETATE 25 MG SUPP PR PRN (16:55)
[2018-09-04] MEDS ORDERED: ACETAMINOPHEN 325 MG TAB PO PRN (16:55)
--- NOTE | 2018-09-04 17:02 | Procedure Note ---
Vaginal Delivery Summary Date of Service September 04, 2018 Vaginal Delivery Summary Delivery Note live female over intact perineum JASON with double nuchal cord reduced on perineum. Delayed cord clamping with Apgars 8/9 weight pending. Cord blood obtained followed by spontaneous delivery of intact placenta. No tears. EBL 200 ml. Final sponge and instrument count are correct. Mom and baby stable.
--- NOTE | 2018-09-04 19:09 | Anesthesia Procedure Note ---
Date of Service September 04, 2018 Anesthesia Post Epidural Note Vital Signs Vital Signs: Temp Pulse Resp BP Pulse Ox 37.4 C 136 H 18 136/63 95 09/04/18 16:30 09/04/18 18:51 09/04/18 16:30 09/04/18 18:51 09/04/18 17:10 Notes Mental Status: alert / awake / arousable and participated in evaluation Nausea / Vomiting: adequately controlled Pain: adequately controlled Airway Patency, RR, SpO2: stable & adequate BP & HR: stable & adequate Hydration State: stable & adequate Neuraxial Anesthesia: was administered and sensory block is resolving Anesthetic Complications: no major complications apparent Epidural: Removed without complications and With tip intact
[2018-09-04] MEDS: DOCUSATE SODIUM 100 MG CAP PO SCH (22:46)
[2018-09-04] MEDS: IBUPROFEN 600 MG TAB PO PRN (22:59)
[2018-09-05 07:17] LABS: Hematocrit (blood only) 32.4 % (37-47); Hemoglobin 10.8 g/dL (12.0-16.0); Mean Corpuscular Hgb Conc 33.3 g/dL (32-36); Mean Corpuscular Volume 81.6 fL (80-100); Mean Platelet Volume 11.2 fL (7.4-10.4); Platelet Count 140 K/uL (130-400); RDW Coefficient of Variation 16.6 % (11.5-14.5); RDW Standard Deviation 49.4 fL (36.4-46.3); Red Blood Count 3.97 M/uL (4.2-5.4); White Blood Count 15.08 K/uL (4.8-10.8)
[2018-09-05] MEDS ORDERED: NON-FORMULARY MEDICATION (Pnv Cmb#95-Ferrous Fumarate-Fa [Prenatal] 1 TAB) PO SCH (09:00)
[2018-09-05] MEDS ORDERED: MEASLES, MUMPS & RUBELLA VIRUS VIAL SQ ONE (09:00)
[2018-09-05] MEDS ORDERED: DIPHTHERIA/TETANUS/PERTUSSIS 0.5 ML SYR/VIAL IM ONE (09:00)
--- NOTE | 2018-09-05 09:20 | Obstetrical Progress Note ---
Date of Service September 05, 2018 Subjective doing well passing gas tolerating diet out of bed Physical Exam Constitutional: WD/WN, vitals as above comfortable abdomen soft non- tender fundus firm neg Luz's tent d/c in AM Results & Data Vital Signs (Past 12 Hours) Vital Signs Temp Pulse Resp BP Pulse Ox 09/05/18 08:59 37 C 108 H 18 125/82 99 09/05/18 03:10 36.9 C 97 H 16 128/79 98 09/04/18 23:05 36.8 C 102 H 18 128/82 97 Laboratory Results Laboratory Results - last 48 hr 09/04/18 09/05/18 00:37 06:54 WBC 14.59 H 15.08 H RBC 4.79 3.97 L Hgb 13.4 10.8 L Hct 37.8 32.4 L MCV 78.9 L 81.6 MCH 28.0 27.2 MCHC 35.4 33.3 RDW Std Deviation 46.6 H 49.4 H RDW Coeff of Loli 16.2 H 16.6 H Plt Count 198 140 MPV 11.4 H 11.2 H Absolute Nucleated RBC 0.02 H Nucleated RBC % (auto) 0.1
[2018-09-05] MEDS: PRENATAL VITAMIN 1 TAB PO SCH (09:25)
[2018-09-05] MEDS: IBUPROFEN 600 MG TAB PO PRN ×2 (09:25→16:37)
[2018-09-05] MEDS: DOCUSATE SODIUM 100 MG CAP PO SCH ×2 (09:25→21:09)
[2018-09-05] MEDS: FERROUS SULFATE 325 MG TAB PO SCH (09:25)
[2018-09-05] MEDS ORDERED: BISACODYL 5 MG TABEC PO SCH (20:00)
[2018-09-06] MEDS: IBUPROFEN 600 MG TAB PO PRN ×3 (01:04→18:49)
[2018-09-06 06:40] LABS: Hematocrit (blood only) 31.1 % (37-47); Hemoglobin 10.3 g/dL (12.0-16.0)
[2018-09-06] MEDS: DOCUSATE SODIUM 100 MG CAP PO SCH (07:34)
[2018-09-06] MEDS: PRENATAL VITAMIN 1 TAB PO SCH (07:34)
[2018-09-06] MEDS: FERROUS SULFATE 325 MG TAB PO SCH (07:36)
--- NOTE | 2018-09-06 10:47 | Obstetrical Progress Note ---
Date of Service September 06, 2018 Assessment & Plan (1) normal course: PPd #2 pt doing well no complaints disch home with instrcutions Subjective Ambulation: ambulating normally Voiding: no voiding problems Passing Gas:: Yes Diet Tolerance:: regular diet Lochia:: Small Feeding Type:: breast feeding Review of Systems All systems reviewed & are unremarkable except as noted in HPI & below Physical Exam Vital Signs (Past 24 Hours) Last Vital Signs Temp 36.8 C 09/06/18 07:30 Pulse 93 H 09/06/18 07:30 Resp 20 09/06/18 07:30 BP 125/77 09/06/18 07:30 Pulse Ox 98 09/05/18 16:25 Constitutional WD/WN, vitals as above well developed and well nourished Eyes PERRL, conjunctivae normal, anicteric sclerae Neck trachea midline, no thyromegaly Respiratory normal respiratory effort, lungs clear to auscultation Auscultation: no crackles, no rales and no wheezes Cardiovascular RRR, no murmur, no edema Gastrointestinal (Abdomen) normal bowel sounds, soft, nontender, no hepatosplenomegaly Uterus is below umbilicus Musculoskeletal no cyanosis or clubbing, extremities motor strength 5/5 Skin no rashes, warm and dry Neurologic patellar DTR's 2+ bilat, sensation intact Psychiatric A+Ox3, euthymic affect Genitourinary normal external appearance
[2018-09-06] MEDS ORDERED: CALCIUM CARBONATE 500 MG CHEWABLE TAB PO ONE (18:25)
[2018-09-06] MEDS ORDERED: MAGNESIUM HYDROXIDE SUSP 30 ML UDC PO ONE (18:32)
== END 2018-09-06 19:40 | disposition home or self-care (01) | DRG 807 ==
LOC: OPB 23:49 → 4S1 23:52 → 4S2 09-04 19:53

== ENCOUNTER 2021-11-13 07:41 | Inpatient (IN) ==
[2021-11-13] MEDS ORDERED: OXYTOCIN 30 UNITS/500 ML BAG IV PRN ×3 (07:52→15:18)
--- NOTE | 2021-11-13 07:54 | History & Physical Report ---
Date of Service November 13, 2021 Assessment & Plan (1) with 39 completed weeks gestation: (2) Encounter for elective induction of labor: Plan Plan pitocin induction. arom as needed. epidural on demand--she plans to see how it goes. fetus category one. anticipate . Admission and Anticipated Discharge Date Admission Date: November 13, 2021 History of Present Illness Chief Complaint: elective induction Primary Care Provider: Renata Motley DO Patient is a 26yowf at 39 6/7 weeks for elective induction for childcare issues. has been uncomplicated. Presented for [place] bulb last night but cervix was favorable. +fm, rare contraction. no lof/vb. and Delivery Plans Elective Induction 11/13/21 Obesity (BMI between 35-39 @ beginning of ) *Growth US @ 32 wks *Weekly NSTs @ 36wks COVID + 05/24/21 (sx began 05/23) negative on 11/12 OB Labs: Blood Type O Positive 04/11/21 Antibody Screen NEGATIVE 04/11/21 Hemoglobin 13.1 g/dL (12.0-16.0) 08/31/21 Hematocrit 40.4 % (37-47) 08/31/21 Mean Corpuscular Volume 86.9 fL (80-100) 04/11/21 Platelet Count 236 K/uL (130-400) 04/11/21 Rubella IgG Antibody Immune (Immune) 04/11/21 Rapid Plasma Reagin Nonreactive (Nonreactive) 04/11/21 Hepatitis B Surface Antigen Neg (Neg) 04/11/21 Hepatitis C Antibody Neg (Neg) 04/11/21 HIV (1&2) Ab and P24 Ag, 4th Gener Neg (Neg) 04/11/21 Glucose 1 Hour 50 gm Load 140 mg/dl (70-130) H 06/06/21 OB Optional Labs: Chlamydia trachomatis RNA NOT DETECTED (NOT DETECTED) 04/11/21 Neisseria gonorrhoeae RNA NOT DETECTED (NOT DETECTED) 04/11/21 Labs Reviewed: low risk cfdna - sln declined afp gbs negative Allergies Allergy/AdvReac Type Severity Reaction Status Date / Time No Known Allergies Allergy Verified 11/12/21 19:13 Home Medications Medication Instructions Recorded Confirmed Type prenat.vits,faby,yto-doel-xaptz 1 tab PO DAILY 04/05/21 11/12/21 History Patient History Medical History GERD (gastroesophageal reflux disease) Morbid obesity Varicella vaccination Vomiting Surgical History [place] teeth removed Family History Father Colorectal cancer Denies family history of Ovarian cancer Breast cancer Social History Smoking Status: Never smoker Hx Alcohol Use: No Hx Substance Use: No Preferred Language: Greek Communication Ability: Effective Manager Internship Required: No Beliefs That Will Affect Care: None marital status: marital status details: Joseph Blanco [phone] Current Living Situation: Spouse and Family Current Living Situation Comment: lives with spouse, daughter current occupational status: employed 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 Date GA wks Lbr Lgth wt Sex Type del Anes Place Del Prov ? Comment 09/04/18 38 7-6 F Epidural [facility] [employer] History noncontributory Physical Exam Constitutional: WD/WN, vitals as above Gastrointestinal (Abdomen): soft, nt, nd, gravid Psychiatric: A+Ox3, euthymic affect Genitourinary: cx--4/75/-2/mid/soft toco--occasional efm--150s wtih mod variability, accels present, no decels Coding Level of Care Code None Diagnoses with 39 completed weeks gestation Z3A.39 Encounter for elective induction of labor Z34.90
--- NOTE | 2021-11-13 08:05 | History & Physical Report ---
Date of Service November 13, 2021 Assessment & Plan Admission and Anticipated Discharge Date Admission Date: November 13, 2021 History of Present Illness Chief Complaint: induction gdm Primary Care Provider: Renata Motley DO Patient is a 26yowf with iup at39 6/7 weeks who presents for induction for diet controlled gm. Last us was AC 92%. Allergies Allergy/AdvReac Type Severity Reaction Status Date / Time No Known Allergies Allergy Verified 11/12/21 19:13 Home Medications Medication Instructions Recorded Confirmed Type prenat.vits,faby,lpp-gexj-yjicb 1 tab PO DAILY 04/05/21 11/12/21 History Patient History Medical History GERD (gastroesophageal reflux disease) Morbid obesity Varicella vaccination Vomiting Surgical History [place] teeth removed Family History Father Colorectal cancer Denies family history of Ovarian cancer Breast cancer Social History Smoking Status: Never smoker Hx Alcohol Use: No Hx Substance Use: No Preferred Language: Telugu Communication Ability: Effective Brass [employer] Winder Required: No Beliefs That Will Affect Care: None marital status: marital status details: Joseph Blanco [phone] Current Living Situation: Spouse and Family Current Living Situation Comment: lives with spouse, daughter current occupational status: employed 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
[2021-11-13 08:29] LABS: Hematocrit (blood only) 39.2 % (34.1-44.9); Mean Corpuscular Hemoglobin 27.1 pg (25.0-34.0); Mean Corpuscular Hgb Conc 33.2 g/dL (32.0-36.0); Mean Corpuscular Volume 81.8 fL (80.0-100.0); Mean Platelet Volume 12.1 fL (9.4-12.3); Platelet Count 179 K/uL (130-400); RDW Coefficient of Variation 15.8 % (11.5-14.5); RDW Standard Deviation 46.9 fL (36.4-46.3); Red Blood Count 4.79 M/uL (3.93-5.22); White Blood Count 11.38 K/ul (4.8-10.8)
[2021-11-13] MEDS: LACTATED RINGER'S 1,000 ML IV PRN ×2 (08:35→12:41)
[2021-11-13] MEDS ORDERED: CALCIUM CARBONATE 500 MG CHEWABLE TAB PO PRN (11:32)
[2021-11-13] MEDS ORDERED: ONDANSETRON INJ 2 MG/ML 2 ML VIAL IV PRN ×2 (11:32→12:42)
[2021-11-13] MEDS ORDERED: SODIUM CHLORIDE 0.9% INJ 10 ML VIAL ONE (11:54)
[2021-11-13] MEDS ORDERED: LIDOCAINE 2%/EPINEPHRINE 1:200,000 20 ML SDV ONE (11:54)
[2021-11-13] MEDS ORDERED: BUPIVACAINE 0.25% 30 ML VIAL ONE (11:54)
[2021-11-13] MEDS ORDERED: ePHEDrine sulfate 50 MG/ML AMP ONE (11:54)
[2021-11-13] MEDS ORDERED: fentaNYL citrate 100 MCG/2 ML VIAL ONE (11:54)
[2021-11-13] MEDS ORDERED: fentaNYL 2MCG/ML ROPIVACAINE 1.25MG/ML 100 ML BAG EPI ONE (11:55)
--- NOTE | 2021-11-13 12:08 | Anesthesiology Consultation ---
Date of Service November 13, 2021 Assessment & Plan (1) Encounter for pre-operative examination: Chart Review Chart Review: Acceptable Risk for Labor Epidural History Height/Weight Height: 5 ft 5 in Weight: 113.852 kg Allergies Allergy/AdvReac Type Severity Reaction Status Date / Time No Known Allergies Allergy Verified 11/12/21 19:13 Medications Home Medications Medication Instructions Recorded Confirmed Last Taken prenat.vits,faby,ofa-immq-sfugf 1 tab PO DAILY 04/05/21 11/13/21 11/12/21 14:00 Active Medications Generic Name Dose Route Start Last Admin Trade Name Freq PRN Reason Stop Dose Admin Lactated Ringer's 1,000 mls @ 125 mls/hr 11/13/21 07:52 11/13/21 11:57 Lr IV 11/15/21 07:51 999 mls/hr .Q8H PRN Infusion L&D Protocol Protocol Oxytocin 30 units in 500 mls @ 7 mls/hr 11/13/21 09:09 11/13/21 10:55 Pitocin IV 11/15/21 09:08 0.42 units/hr .Q24H PRN 7 mls/hr Labor Induction/Augmentation Titration Protocol 0.42 UNITS/HR Past Medical History Medical History GERD (gastroesophageal reflux disease) Morbid obesity Varicella vaccination Vomiting Past Family History Family History Father Colorectal cancer Denies family history of Ovarian cancer Breast cancer Past Surgical History Surgical History [place] teeth removed Social History Smoking Status: Never smoker Hx Alcohol Use: No Hx Substance Use: No substance use type: does not use Physical Exam Vital Signs Last Vital Signs Temp 36.6 C 11/13/21 09:02 Pulse 90 11/13/21 12:04 Resp 18 11/13/21 09:02 BP 126/77 11/13/21 12:04 Pulse Ox 97 11/13/21 12:01 Testing Laboratory Results 11/13/21 08:04 Blood Type Cancelled 11/13/21 08:04 Blood Type O Positive 11/13/21 08:04 Antibody Screen Cancelled 11/13/21 08:04 Antibody Screen NEGATIVE 11/13/21 08:04
[2021-11-13] MEDS ORDERED: NALOXONE HCL 0.4 MG/1 ML VIAL/CARP IV PRN (12:42)
[2021-11-13] MEDS ORDERED: fentaNYL 2MCG/ML ROPIVACAINE 1.25MG/ML 100 ML BAG EPI PRN (12:42)
[2021-11-13] MEDS ORDERED: ePHEDrine sulfate 50 MG/ML AMP IV PRN (12:42)
[2021-11-13] MEDS ORDERED: NALOXONE HCL 1 MG in SODIUM CHLORIDE 0.9% 1000ML 1,000 ML IV PRN (12:42)
[2021-11-13] MEDS ORDERED: DIPHTHERIA/TETANUS/PERTUSSIS 0.5 ML SYR/VIAL IM ONE (15:18)
[2021-11-13] MEDS ORDERED: bisacodyL 10 MG SUPP PR PRN (15:18)
[2021-11-13] MEDS ORDERED: ACETAMINOPHEN 325 MG TAB PO PRN (15:18)
[2021-11-13] MEDS ORDERED: HYDROCORTISONE ACETATE 25 MG SUPP PR PRN (15:18)
[2021-11-13] MEDS ORDERED: BENZOCAINE 20% AER SPR 82.5 GM CAN EXT PRN (15:18)
[2021-11-13] MEDS ORDERED: oxyCODONE/ACETAMINOPHEN 5mg/325mg TAB PO PRN (15:18)
--- NOTE | 2021-11-13 15:18 | Delivery Summary ---
Vaginal Delivery Summary Date of Service November 13, 2021 Vaginal Delivery Summary Patient induced after 39 weeks gestation Pitocin artificial rupture of membranes and an epidural she progressed to fully dilated and pushed a baby out in occiput anterior position clear fluid mouth and then nares were suctioned no nuchal cord easy delivery with no excessive force live vigorous cord clamped and cut cord blood obtained placenta removed with gentle traction IV Pitocin started there was no tearing estimated blood loss 150 mL sponge and instrument counts correct
--- NOTE | 2021-11-13 15:26 | Anesthesia Procedure Note ---
Date of Service November 13, 2021 Anesthesia Post Epidural Note Vital Signs Vital Signs: Temp Pulse Resp BP Pulse Ox 36.6 C 116 H 18 111/59 L 97 11/13/21 14:07 11/13/21 15:16 11/13/21 14:07 11/13/21 15:16 11/13/21 15:11 Pain Intensity Lower Medial Abdomen: Pain Intensity: 0 Notes Mental Status: alert / awake / arousable and participated in evaluation Nausea / Vomiting: adequately controlled Pain: adequately controlled Airway Patency, RR, SpO2: stable & adequate BP & HR: stable & adequate Hydration State: stable & adequate Neuraxial Anesthesia: was administered and sensory block is resolving Anesthetic Complications: no major complications apparent Epidural: Removed without complications and With tip intact
[2021-11-13] MEDS: DOCUSATE SODIUM 100 MG CAP PO SCH (19:55)
[2021-11-13] MEDS: IBUPROFEN 600 MG TAB PO PRN (21:45)
--- NOTE | 2021-11-14 05:45 | Obstetrical Progress Note ---
Date of Service <Graciela BushDO - Last Filed: 11/14/21 06:26> November 14, 2021 Assessment & Plan <Graciela BushDO - Last Filed: 11/14/21 06:26> (1) Status post vaginal delivery: Plan continue OOB, ambulation, diet as tolerated <Rick Jason MD, FACOG - Last Filed: 11/14/21 06:48> (1) Status post vaginal delivery: Subjective <Gracielakelton BushDO - Last Filed: 11/14/21 06:26> Isamar is a 26 y/o female who is now PPD # 1 following vaginal delivery at 39 6/7. Reports feeling well overall this morning. Mild abdominal cramping & pain well managed on analgesics. Voiding. Tolerating meals overnight and able to ambulate some. Is passing gas, and had a bowel movements. Some persistent lochia with some improvement this morning. Breast/Bottle feeding. Review of Systems Denies fever, chills, sweats Denies shortness of breath, difficulty breathing, chest pain, palpitations, chest pressure. Denies breast pain. Denies dysuria. Denies headache or changes in vision. Physical Exam <Gracielakelton BushDO - Last Filed: 11/14/21 06:26> General: Alert, oriented. No acute distress. Cardiac: Regular rate and rhythm, no murmurs/rubs/gallops. Respiratory: Clear to auscultation bilaterally a/p, no wheezes/rales/rhonchi. No increased work of breathing. Symmetrical chest rise. No respiratory distress. Abdomen: Soft, nontender, nondistended. Bowel sounds present. Uterus: Uterine fundus firm, palpable 2 cm below umbilicus. Lower Extremities: No lower extremity edema or swelling. No deep calf pain. Luz's negative bilaterally. Results & Data ([facility]) <Graciela BushDO - Last Filed: 11/14/21 06:26> Vital Signs (Past 12 Hours) Vital Signs Temp Pulse Pulse Resp BP BP Pulse Ox 11/13/21 23:05 36.7 C 92 H 18 109/72 11/13/21 19:50 36.8 C 105 H 18 118/77 11/13/21 18:00 36.7 C 104 H 18 108/72 96 11/13/21 18:00 11/13/21 18:03 36.9 C O2 Del Method 11/13/21 23:05 11/13/21 19:50 11/13/21 18:00 Room Air 11/13/21 18:00 Room Air 11/13/21 18:03 <Rick Jason MD, FACOG - Last Filed: 11/14/21 06:48> Co-Signing Physician Notes Resident Physician Supervision Note: I was present with DrMeredith [Name of resident] during the history and exam. I discussed the case with the resident and agree with the findings and plan as documented in the note. Any exceptions or clarifications are listed here: [No ne] Documented By: Rick Jason MD, FACOG Resident Activity Tracking <Graciela Bush DO - Last Filed: 11/14/21 06:26> Resident Involvement: Resident Care Provided Care Provided: OB Delivery (Post )
[2021-11-14] MEDS: IBUPROFEN 600 MG TAB PO PRN (06:26)
[2021-11-14 07:23] LABS: Hematocrit (blood only) 36.6 % (34.1-44.9); Hemoglobin 12.2 g/dl (12.0-16.0); Mean Corpuscular Hemoglobin 27.4 pg (25.0-34.0); Mean Corpuscular Hgb Conc 33.3 g/dL (32.0-36.0); Mean Corpuscular Volume 82.1 fL (80.0-100.0); Mean Platelet Volume 11.9 fL (9.4-12.3); Platelet Count 168 K/uL (130-400); RDW Coefficient of Variation 15.9 % (11.5-14.5); RDW Standard Deviation 47.1 fL (36.4-46.3); Red Blood Count 4.46 M/uL (3.93-5.22); White Blood Count 12.79 K/ul (4.8-10.8)
[2021-11-14] MEDS ORDERED: PRENATAL VITAMIN 1 TAB PO SCH (08:00)
[2021-11-14] MEDS: DOCUSATE SODIUM 100 MG CAP PO SCH (08:47)
[2021-11-14] MEDS ORDERED: bisacodyL 5 MG TABEC PO SCH (20:00)
== END 2021-11-14 18:30 | disposition home or self-care (01) | DRG 807 ==
LOC: 4S1 07:49 → 4E2 19:07